=== PATIENT | female | born 1975 | race Two or more races ===

== ENCOUNTER 2024-11-19 07:16 | Emergency (ER) | payer BC, SELFPAY ==
--- NOTE | 2024-11-19 | XR_ITS ---
Examination: MRI of brain without intravenous contrast. MRI brain with intravenous contrast. Date and time of exam:November 19, 2024 1417 hrs. Indications: Stroke symptoms today, altered mental status, numbness left arm Technique: Multiple axial and sagittal images of the brain to been obtained. Siemens high-resolution 1.52 Mague short bore scanner utilized. Sagittal sections, T1 weighted images, TR 500, TE 14, are performed. Axial sections proton-density and T2-weighted images have been obtained. Inversion recovery axial images, TR 9260, TE 111, TR 2500. Diffusion weighted images, axial sections, TR 4800, TE 128, B value 1000. Axial sections, ADC map, TR 4800, TE 128. Axial and coronal images were also obtained post 10 cc gadolinium administered intravenously. Findings:: Enlargement of the sella turcica is not present. The optic chiasm and infundibular stalk are not remarkable. There is no localized enlargement of the medulla or felix. Fourth ventricle and cerebellar tonsils appear normal in position. No subacute area of hemorrhage density is seen. Fourth ventricle is midline. Mass in the cerebellopontine angle region is not evident. 7th and 8th nerve complexes exhibit symmetry Globes are symmetrical Orbital musculature including medial lateral rectus muscles do not exhibit abnormality Increased white matter signal is evident, single punctate focus increased signal in the right frontal white matter FLAIR image 13 Effacement of the cortical sulcal markings is not identified. Mass effect upon the ventricular system is not identified. Diffusion-weighted images demonstrate no focus of restricted diffusion Contrast images demonstrate no abnormal enhancement Impression: Negative for acute hemorrhage mass effect or midline shift Single punctate focus increased signal in the right frontal white matter, FLAIR image 13, likely demyelinating disease
--- NOTE | 2024-11-19 07:22 | EKG_ITS ---
[facility] Test Date: 2024-11-19 Pat Name: CYNTHIA ROMAN Department: Room: - Gender: Female Language Assistant: : 1975 Requested By: ED Temporary Provider Order Number: [id number] Reading MD: ED Temporary Provider Measurements Intervals [place] Rate: 62 P: 59 MS: 154 QRS: -3 QRSD: 96 T: 52 QT: 423 QTc: 430 Interpretive Statements SINUS RHYTHM LOW QRS VOLTAGE IN PRECORDIAL LEADS [QRS DEFLECTION < 1.0 mV IN CHEST LEADS] No previous ECG available for comparison /store/S0/[id number].pdf
[2024-11-19 07:24] VITALS: BMI 23.3
[2024-11-19 07:29] VITALS: BP 146/97; PULSE 64; RESP 19; TEMP 36.4; O2SAT 98
--- NOTE | 2024-11-19 07:59 | XR_ITS ---
Examination: CT brain head without contrast. 2-D sagittal coronal reconstructions Date and time of exam:November 19, 2024 10: 10:18 AM Indications: Onset focal neurologic deficit today CTDI: vol (mGy):44.9 DLP: (mGycm):504 Technique: Multiple CT axial sections of the brain have been obtained, 5 mm slice thickness. Contrast has not been administered. 2-D sagittal, coronal reconstructions have been obtained Low dose protocols were performed. One or more of the following dose reduction techniques were used; automated exposure control, adjustment of the mA and/or KV according to patient size, use of iterative reconstruction technique. Findings: No significant ventricular enlargement. Intra-axial or extra-axial hemorrhage density is not seen. No mass effect or midline shift Basal cisterns are not remarkable. Fourth ventricle is midline. Cranial vault intact. Impression: Negative for acute hemorrhage, mass effect or midline shift As clinically warranted, brain MRI MRA without contrast follow-up would best assess for demyelinating disease, acute ischemic change
--- NOTE | 2024-11-19 08:01 | PD.EDRME ---
Rapid Medical Screening Exam RME Arrival date/time: 11/19/24 07:16 This a 48-year-old female presents to the emergency department with complaints of chest pain and left arm numbness and tingling. She states that she began with symptoms since . Reports noticed some facial droop, and left arm strength decreased. I have greeted and performed a focused initial assessment of this patient. Initial appropriate labs ordered at this time. A comprehensive ED assessment and evaluation of the patient and analysis of all test and completion of medical decision making process will be conducted by additional ED provider. Chief Complaint: Chest Pain Time Seen by Provider: 11/19/24 07:26 Vital signs: Vital Signs Temperature 97.6 F 11/19/24 07:29 Pulse Rate 64 11/19/24 07:29 Respiratory Rate 19 11/19/24 07:29 Blood Pressure 146/97 H 11/19/24 07:29 Pulse Oximetry (%) 98 11/19/24 07:29 Oxygen Delivery Method Room Air 11/19/24 07:29
[2024-11-19 08:20] VITALS: BP 128/79; PULSE 61; RESP 16; O2SAT 99
--- NOTE | 2024-11-19 09:18 | PD.EDADULT ---
ED General RME/HPI General Chief complaint: Chest Pain Stated complaint: CHEST PAIN/NUMBNESS TO THE LEFT ARM Time Seen by Provider: 11/19/24 07:26 Arrival date/time: 11/19/24 07:16 RME / HPI RME / HPI narrative: 11/19/24 07:16 This a 48-year-old female presents to the emergency department with complaints of chest pain and left arm numbness and tingling. She states that she began with symptoms since . Reports noticed some facial droop, and left arm strength decreased. I have greeted and performed a focused initial assessment of this patient. Initial appropriate labs ordered at this time. A comprehensive ED assessment and evaluation of the patient and analysis of all test and completion of medical decision making process will be conducted by additional ED provider. DR. MARTIN GARCIA ED EVALUATION: 48 year old female presents to the Emergency Department with multiple complaints including the following: left chest pain, left neck pain, left arm numbness, facial numbness and tingling to the face sometimes on the right side sometime on the left side. She also reports she is very weak, left arm for the last couple of hours. Onset of symptoms, all, started this morning. She mentions that she has similar symptoms when she got a reaction to the COVID vaccine in [address] Charles diagnosed her with optic neuritis of the right eye which was resolved and treated. She has history of migraines and botox injections to the face. Recently had an URI last week. Related Data Allergies Allergy/AdvReac Type Severity Reaction Status Date / Time No Known Allergies Allergy Verified 11/19/24 07:23 Review of Systems Review of Systems Systems Reviewed: All systems reviewed, normal except as documented Narrative Review of Systems: GEN: No fever, no chills, no weight loss EYES: No discharge, no visual changes, no pain HEENT: No ear pain, no congestion, no sore throat; + left neck pain PULM: No shortness of breath, no cough, no congestion CV: + left chest pain, no dyspnea on exertion, no palpitations GI: No nausea, no vomiting, no diarrhea, no pain, no constipation : No frequency, no urgency and no dysuria MUSC/SKEL: No joint pain, no back pain SKIN: No rash PSYCH: No hallucinations, no depression HEME/LYMPH: No easy bleeding or bruising tendencies NEURO: + left arm numbness/ weakness, no headache, + facial numbness and tingling to the face sometimes on the right side sometime on the left side Past Medical History Social History SMOKING STATUS: Never smoker SUBSTANCE USE: does not use ALCOHOL: Never ED Exam Narrative Physical exam: GENERAL APPEARANCE: AxOx4, generally well-appearing, no acute distress. HEENT: NC, AT. MMM. EOMI, clear conjunctiva, oropharynx clear. NECK: Supple without lymphadenopathy. No stiffness or restricted ROM. HEART: Normal rate and regular rhythm, normal S1/S1, no m/r/g LUNGS: CTAB, moving air well. No crackles or wheezes are heard. ABDOMEN: Soft, nontender, nondistended with good bowel sounds heard. BACK: No midline C/T/L spine pain or deformity, No CVAT, no obvious deformity. EXTREMITIES: Without cyanosis, clubbing or edema. MUSCULOSKELETAL: FROM of all major joints, no chest tenderness NEUROLOGICAL: Grossly nonfocal. Alert and oriented, moving all 4 extremities. CN not formally tested but appear grossly intact. Observed to ambulate with normal gait. Skin: Warm and dry without any rash. Course Quality Measures none Orders Category Date Time Status Bedside Blood Glucose NOW Care 11/19/24 07:59 Active Transmission System Operator NOW Care 11/19/24 07:59 Active EKG (ED ONLY) *Do not use* NOW Care 11/19/24 07:22 Completed Insert IV NOW Care 11/19/24 07:59 Active MRI Screening NOW Care 11/19/24 09:41 Active NIH Stroke Scale now Care 11/19/24 07:59 Active NPO NOW Care 11/19/24 07:59 Active Nurse Swallow Screen x1 Care 11/19/24 07:59 Active Consult to Neurology / Tele-Neurology Routine Cons 11/19/24 07:[address] stroke protocol Stat Exams 11/19/24 07:59 Completed EKG (ED Only) Stat Exams 11/19/24 07:22 Draft MR head/brain wo/w con Stat Exams 11/19/24 Completed CBC Stat Lab 11/19/24 08:45 Completed Comprehensive Metabolic Panel Stat Lab 11/19/24 08:45 Completed Drug Screen,Urine Stat Lab 11/19/24 09:36 Completed HCG Titer if Positive Stat Lab 11/19/24 08:45 Completed Magnesium Stat Lab 11/19/24 08:45 Completed Partial Thromboplastin Time Stat Lab 11/19/24 08:45 Completed Prothrombin Time with INR Stat Lab 11/19/24 08:45 Completed Troponin I Stat Lab 11/19/24 08:45 Completed Urinalysis Stat Lab 11/19/24 09:36 Completed Urine Culture Stat Lab 11/19/24 09:36 Received Ketorolac Inj [Toradol Inj] Med 11/19/24 16:28 Discontinued 30 mg IVP X1 ONE Ondansetron Inj [Zofran Inj] Med 11/19/24 07:59 Active 4 mg IV Q4HR PRN Vital Signs Vital signs: Vital Signs Temperature 97.6 F 11/19/24 07:29 Pulse Rate 64 11/19/24 07:29 Respiratory Rate 19 11/19/24 07:29 Blood Pressure 146/97 H 11/19/24 07:29 Pulse Oximetry (%) 98 11/19/24 07:29 Oxygen Delivery Method Room Air 11/19/24 07:29 Procedures -ED EKG Interpretation #1: Date of EK11/19/24 Time of EK:28 Rate: 99 Interpretation: Interpreted by me Additional EKG comment: sinus rhythm, rate 99, normal intervals, normal axis, no acute ST-T wave changes. MDM Patient data External records reviewed:: None (no previous visits) Clinical information provided by:: patient Social determinants that could affect healthcare access:: none Patient has the following chronic illnesses:: Has history of migraines and botox injections to the face. Recently had an URI last week. See HPI. How is presenting disease/condition affected by chronic disease/condition?: no chronic disease Evaluation data The following diagnostics were reviewed and interpreted by me:: lab results, radiology exam(s) and EKG tracing(s) Lab and/or radiology exams considered but not ordered:: none Interpretation Summary: Procedure(s): CT stroke protocol Accession Number(s): [id number] cc: DAVID POLLACK; Earl Shepard MD; Bj ([facility]~ Examination: CT brain head without contrast. 2-D sagittal coronal reconstructions Date and time of exam:November 19, 2024 10: 10:18 AM Indications: Onset focal neurologic deficit today CTDI: vol (mGy):44.9 DLP: (mGycm):504 Technique: Multiple CT axial sections of the brain have been obtained, 5 mm slice thickness. Contrast has not been administered. 2-D sagittal, coronal reconstructions have been obtained Low dose protocols were performed. One or more of the following dose reduction techniques were used; automated exposure control, adjustment of the mA and/or KV according to patient size, use of iterative reconstruction technique. Findings: No significant ventricular enlargement. Intra-axial or extra-axial hemorrhage density is not seen. No mass effect or midline shift Basal cisterns are not remarkable. Fourth ventricle is midline. Cranial vault intact. Impression: Negative for acute hemorrhage, mass effect or midline shift As clinically warranted, brain MRI MRA without contrast follow-up would best assess for demyelinating disease, acute ischemic change Dictated By: Earl Shepard MD Procedure(s): MR head/brain wo/w con Accession Number(s): [id number] cc: DAVID POLLACK; Ritchie Rehman MD; Earl Shepard MD~ Examination: MRI of brain without intravenous contrast. MRI brain with intravenous contrast. Date and time of exam:November 19, 2024 1417 hrs. Indications: Stroke symptoms today, altered mental status, numbness left arm Technique: Multiple axial and sagittal images of the brain to been obtained. Siemens high-resolution 1.52 Mague short bore scanner utilized. Sagittal sections, T1 weighted images, TR 500, TE 14, are performed. Axial sections proton-density and T2-weighted images have been obtained. Inversion recovery axial images, TR 9260, TE 111, TR 2500. Diffusion weighted images, axial sections, TR 4800, TE 128, B value 1000. Axial sections, ADC map, TR 4800, TE 128. Axial and coronal images were also obtained post 10 cc gadolinium administered intravenously. Findings:: Enlargement of the sella turcica is not present. The optic chiasm and infundibular stalk are not remarkable. There is no localized enlargement of the medulla or felix. Fourth ventricle and cerebellar tonsils appear normal in position. No subacute area of hemorrhage density is seen. Fourth ventricle is midline. Mass in the cerebellopontine angle region is not evident. 7th and 8th nerve complexes exhibit symmetry Globes are symmetrical Orbital musculature including medial lateral rectus muscles do not exhibit abnormality Increased white matter signal is evident, single punctate focus increased signal in the right frontal white matter FLAIR image 13 Effacement of the cortical sulcal markings is not identified. Mass effect upon the ventricular system is not identified. Diffusion-weighted images demonstrate no focus of restricted diffusion Contrast images demonstrate no abnormal enhancement Impression: Negative for acute hemorrhage mass effect or midline shift Single punctate focus increased signal in the right frontal white matter, FLAIR image 13, likely demyelinating disease Dictated By: Earl Shepard MD Medications Medications considered but not ordered:: none Medication administrations:: Medication Administration History Ondansetron HCl (Ondansetron Inj 2 Mg/Ml Inj 2 Ml) 4 mg IV Q4HR PRN PRN Reason: NAUSEA OR VOMITING Stop: 12/19/24 07:58 Discontinued Medications Ketorolac Tromethamine (Ketorolac Inj 30 Mg/Ml Vial) 30 mg IVP X1 ONE Stop: 11/19/24 16:29 see above Consultations Consultation(s) initiated? (list below): No Diagnosis Differential Diagnosis ED Complaint MDM: RI, CAD, ACS, miraines, CVA, TIA, optic neuritis, post viral inflammation Most likely diagnosis given after review of the tests above:: Arm paresthesia, left Myalgia Admission Indicated Admission indicated?: not indicated Explain why admission is indicated or not indicated:: Patient has no emergent abnormalities on his studies and can be managed on an outpatient basis. Admission Request Was there a request for admission?: No Disposition Plan Disposition Plan: Discharge Discharge Attestation Discharge Attestation: The patient and all family members were given an opportunity to ask questions and understood the discharge instructions. Discharge instructions specifically effects, indications for sooner follow up or return to the emergency department, and the expected course of current diagnosis. Patient condition: Stable Medical Decision Making MDM Narrative MDM Narrative: I, Parris Rodarte, am scribing for and in the presence of Dr. Rehman. Differential Diagnosis Differential Diagnosis: RI, CAD, ACS, miraines, CVA, TIA, optic neuritis, post viral inflammation Lab Data 11/19/24 08:45 11/19/24 08:45 Labs: Lab Results 11/19/24 11/19/24 Range/Units 08:45 09:36 WBC 5.1 (3.6-11.0) Thou/mm3 RBC 4.43 (4.00-5.20) Miln/mm3 Hgb 13.8 (12.0-16.0) g/dL Hct 41.1 (36.0-46.0) % MCV 93 (80-100) fL MCH 31.2 (25.0-35.0) pg MCHC 33.6 (31.0-37.0) g/dl RDW Std Deviation 44.2 (36.4-46.3) fL Plt Count 192 (140-440) Thou/mm3 Neut % (Auto) 58 (37-80) % Lymph % (Auto) 32 (10-50) % [place] % (Auto) 7 (0-12) % Eos % (Auto) 2 (0-10) % Baso % (Auto) 1 (0-2.5) % Neut # (Auto) 3.0 (1.8-7.7) Thou/mm3 Lymph # (Auto) 1.7 (1.0-4.8) Thou/mm3 [place] # (Auto) 0.4 (0.0-0.8) Thou/mm3 Eos # (Auto) 0.1 (0.0-0.5) Thou/mm3 Baso # (Auto) 0.0 (0.0-0.2) Thou/mm3 Immature Gran # (Auto) 0.01 H (0.00-0.00) Thou/mm3 Absolute Nucleated RBC 0.00 (0.00-0.00) Thou/mm3 Immature Gran % 0 (0-0) % Nucleated RBC % 0 (0) /100 WBC PT 10.1 (9.0-12.2) Seconds INR 0.9 (0.9-1.3) APTT 26.3 (22.0-36.0) Seconds Sodium 140 (136-145) mMol/L Potassium 3.9 (3.4-5.1) mMol/L Chloride 105 (98-107) mMol/L Carbon Dioxide 26.9 (20.0-31.0) mMol/L Anion Gap 8 (7-16) BUN 7 L (9-23) mg/dL Creatinine 0.7 (0.6-1.3) mg/dL Estim Creat Clear Calc 96.6 (>60) mL/min eGFR > 60 (60 - ) See Note BUN/Creatinine Ratio 10 L (12-20) Ratio Glucose 86 (74-106) mg/dL Calculated Osmolality 276 (275-295) Calcium 9.3 (8.3-10.6) mg/dL Corrected Calcium 9.3 (8.5-10.1) mg/dL Magnesium 1.9 (1.6-2.6) mg/dL Total Bilirubin 0.4 (0.3-1.2) mg/dL AST 19 (0-34) U/L ALT 15 (10-49) U/L Alkaline Phosphatase 68 (46-116) U/L Troponin I < 0.002 (0.0-0.045) ng/mL Total Protein 6.6 (5.7-8.2) gm/dL Albumin 4.2 (3.5-5.0) gm/dL Globulin 2.4 (2.3-3.5) gm/dL Albumin/Globulin Ratio 1.8 (1.2-2.2) Ur Collection Type Clean Catch Urine Color Lt-Yellow (Lt Yel-Yel) Urine Clarity Clear (Clear/Hazy) Urine pH 7.0 (5.0-7.0) Ur Specific [place] 1.008 (1.001-1.035) Urine Protein Negative (Neg - Trace) Urine Glucose (UA) Negative (Negative) Urine Ketones Negative (Negative) Urine Blood Negative (Negative) Urine Nitrite Negative (Negative) Urine Bilirubin Negative (Negative) Urine Urobilinogen (Auto) Negative (0.0-1.0) mg/dL Ur Leukocyte Esterase Negative (Negative) Urine RBC < 1 (0-3) /hpf Urine WBC < 1 (0-5) /hpf Ur Squamous Epith Cells 3 (0-5) /hpf Urine Bacteria Rare (None) Urine Opiates Screen Negative (Negative) Urine Fentanyl Screen Negative (Negative) Ur Barbiturates Screen Negative (Negative) U Amphetamin/Meth Scrn Negative (Negative) U Benzodiazepines Scrn Negative (Negative) U Cocaine Metab Screen Negative (Negative) U Marijuana (THC) Screen Negative (Negative) HCG (Qual) Negative Discharge Plan Plan Patient Disposition: HOME (Self Care) Prescriptions/Referrals Referrals: DVAID POLLACK [Other] - In 1 week Problem List Clinical Impression: Arm paresthesia, left, Myalgia Patient/Caregiver Discharge Instructions Education Materials: ED Myalgias, ED Paraesthesias Additional Instructions: Follow-up with your neurologist for reevaluation advised him we have CAT scans and MRIs and regular today. You can also bring your portal access to your visit with your neurologist follow-up with your primary care doctor, Dr. Pollack, in 2 to 3 days for recheck if symptoms or not improving. Return to the emergency department sooner symptoms worsen or if notes any new, concerning issues. Print Language: Mohawk Stand Alone Forms: Mari Award Info., Patient Portal Info Letter
[2024-11-19 09:43] LABS: Collection Type, Urine Clean Catch
[2024-11-19 09:48] LABS: Basophils % (Auto) 1 % (0-2.5); Eosinophils # (Auto) 0.1 Thou/mm3 (0.0-0.5); Eosinophils % (Auto) 2 % (0-10); Hematocrit 41.1 % (36.0-46.0); Hemoglobin 13.8 g/dL (12.0-16.0); Immature Granulocytes % (Auto) 0 % (0-0); Immature Granulocytes Auto 0.01 Thou/mm3 (0.00-0.00); Lymphocytes # (Auto) 1.7 Thou/mm3 (1.0-4.8); Lymphocytes % (Auto) 32 % (10-50); Mean Corpuscular HGB Conc 33.6 g/dl (31.0-37.0); Mean Corpuscular Hemoglobin 31.2 pg (25.0-35.0); Mean Corpuscular Volume 93 fL (80-100); Monocytes # (Auto) 0.4 Thou/mm3 (0.0-0.8); Monocytes % (Auto) 7 % (0-12); Neutrophils % (Auto) 58 % (37-80); Nucleated Red Blood Cell % 0 /100 WBC (0); Platelet Count 192 Thou/mm3 (140-440); RDW Standard Deviation 44.2 fL (36.4-46.3); Red Blood Count 4.43 Miln/mm3 (4.00-5.20); White Blood Count 5.1 Thou/mm3 (3.6-11.0)
[2024-11-19 09:58] LABS: HCG Titer if Positive Negative
[2024-11-19 10:03] LABS: INR 0.9 (0.9-1.3); Partial Thromboplastin Time 26.3 Seconds (22.0-36.0); Prothrombin Time 10.1 Seconds (9.0-12.2)
[2024-11-19 10:07] LABS: Alanine Aminotransferase 15 U/L (10-49); Albumin, Serum 4.2 gm/dL (3.5-5.0); Albumin/Globulin Ratio 1.8 (1.2-2.2); Alkaline Phosphatase 68 U/L (46-116); Anion Gap 8 (7-16); Aspartate Amino Transferase 19 U/L (0-34); BUN/Creatinine Ratio 10 Ratio (12-20); Bilirubin,Total 0.4 mg/dL (0.3-1.2); Blood Urea Nitrogen 7 mg/dL (9-23); Calcium 9.3 mg/dL (8.3-10.6); Calcium (Corrected) 9.3 mg/dL (8.5-10.1); Carbon Dioxide 26.9 mMol/L (20.0-31.0); Chloride 105 mMol/L (98-107); Creatinine (Component) 0.7 mg/dL (0.6-1.3); Estimated Creatinine Clearance 96.6 mL/min (>60); Globulin 2.4 gm/dL (2.3-3.5); Glucose 86 mg/dL (74-106); Magnesium 1.9 mg/dL (1.6-2.6); Osmolality,Calculated 276 (275-295); Potassium 3.9 mMol/L (3.4-5.1); Sodium 140 mMol/L (136-145); Total Protein 6.6 gm/dL (5.7-8.2); Troponin I < 0.002 ng/mL (0.0-0.045); eGFR > 60 See Note
[2024-11-19 10:12] LABS: Amphetamine/Methamp Scrn,U Negative (Negative); Barbiturate Screen,Urine Negative (Negative); Benzodiazepines Screen,Urine Negative (Negative); Benzoylecgonine Screen, Ur Negative (Negative); Fentanyl Screen,Urine Negative (Negative); Opiate Screen,Urine Negative (Negative); THC Screen,Urine Negative (Negative)
[2024-11-19 10:26] LABS: Bacteria,Urine Rare; Bilirubin,Urine Negative (Negative); Blood,Urine Negative (Negative); Clarity,Urine Clear (Clear/Hazy); Color,Urine Lt-Yellow (Lt Yel-Yel); Glucose, Urine Negative (Negative); Ketones,Urine Negative (Negative); Leukocyte Esterase,Urine Negative (Negative); Nitrite,Urine Negative (Negative); Protein,Urine Negative (Neg - Trace); RBC,Urine < 1 /hpf (0-3); Specific Gravity,Urine 1.008 (1.001-1.035); Squamous Epithelial Cell,Urine 3 /hpf (0-5); Urobilinogen,Urine Negative mg/dL (0.0-1.0); WBC,Urine < 1 /hpf (0-5)
[2024-11-19 10:36] VITALS: BP 124/82; PULSE 63; RESP 16; TEMP 36.7; O2SAT 99
[2024-11-19 12:37] VITALS: BP 110/85; PULSE 68; RESP 18; TEMP 36.8; O2SAT 95
[2024-11-19 16:00] VITALS: BP 115/94; PULSE 65; PULSE 66; RESP 18; TEMP 36.8; O2SAT 98
[2024-11-19] MEDS: KETOROLAC INJ 30 MG/ML VIAL IVP (16:57)
== END 2024-11-19 17:06 | disposition home or self-care (01) ==
PROVIDERS: Nurse Practitioner Primary Care; Emergency Provider Emergency Medicine
DX: M79.10 Myalgia, unspecified site (principal); R20.2 Paresthesia of skin
CPT/HCPCS: 36415; 70450; 70553; 80053; 80307; 81001; 83735; 84484; 84703; 85025; 85610; 85730; 87086; 93005; 99285; A9579; J1885

== ENCOUNTER 2025-01-02 11:58 | Emergency (ER) | payer BC, SELFPAY ==
[2025-01-02 12:00] VITALS: BMI 23.5
[2025-01-02 12:08] VITALS: BP 129/88; PULSE 90; RESP 16; TEMP 36.9; O2SAT 98
--- NOTE | 2025-01-02 12:12 | XR_ITS ---
Examination: Pelvic ultrasound, transabdominal, complete Technique: Transabdominal ultrasound of the pelvis performed using grayscale imaging Date and time of exam: January 02, 2025 1327 hours INDICATIONS: Onset heavy vaginal bleeding today FINDINGS: Uterus 9.0 cm endometrial stripe 1.1 cm No uterine mass or intrauterine gestation Right ovary 3.2 cm arterial flow. Left ovary 2.7 cm arterial flow 20 x 16 mm cyst IMPRESSION: No uterine mass or intrauterine gestation Left ovarian simple cyst 20 x 16 x 16 mm
--- NOTE | 2025-01-02 12:13 | EDRME_ITS ---
Rapid Medical Screening Exam [facility] Arrival date/time: 01/02/25 11:58 49-year-old female with no known medical history presents to the emergency room with a chief complaint of bilateral pelvic pain, vaginal bleeding x 2 days. Patient states she is changing over 1 pad an hour. Patient has a history of a tubal ligation I have greeted and performed a focused initial assessment of this patient. A comprehensive ED assessment and evaluation of the patient, analysis of all test results, and completion of the medical decision making process will be conducted by additional ED providers. Chief Complaint: Vaginal Bleeding Vital signs: Vital Signs Temperature 98.5 F 01/02/25 12:08 Pulse Rate 90 01/02/25 12:08 Respiratory Rate 16 01/02/25 12:08 Blood Pressure 129/88 H 01/02/25 12:08 Pulse Oximetry (%) 98 01/02/25 12:08 Oxygen Delivery Method Room Air 01/02/25 12:08 Vital signs reviewed by provider: Yes
[2025-01-02 12:41] LABS: Basophils % (Auto) 1 % (0-2.5); Eosinophils # (Auto) 0.2 Thou/mm3 (0.0-0.5); Eosinophils % (Auto) 3 % (0-10); Hemoglobin 12.5 g/dL (12.0-16.0); Immature Granulocytes % (Auto) 0 % (0-0); Immature Granulocytes Auto 0.01 Thou/mm3 (0.00-0.00); Lymphocytes # (Auto) 1.6 Thou/mm3 (1.0-4.8); Lymphocytes % (Auto) 27 % (10-50); Mean Corpuscular HGB Conc 32.9 g/dl (31.0-37.0); Mean Corpuscular Hemoglobin 31.2 pg (25.0-35.0); Mean Corpuscular Volume 95 fL (80-100); Monocytes # (Auto) 0.4 Thou/mm3 (0.0-0.8); Monocytes % (Auto) 6 % (0-12); Neutrophils # (Auto) 3.7 Thou/mm3 (1.8-7.7); Neutrophils % (Auto) 63 % (37-80); Nucleated Red Blood Cell % 0 /100 WBC (0); Platelet Count 176 Thou/mm3 (140-440); RDW Standard Deviation 45.3 fL (36.4-46.3); Red Blood Count 4.01 Miln/mm3 (4.00-5.20); White Blood Count 5.9 Thou/mm3 (3.6-11.0)
[2025-01-02 12:59] LABS: Partial Thromboplastin Time 27.3 Seconds (22.0-36.0); Prothrombin Time 10.7 Seconds (9.0-12.2)
[2025-01-02 13:02] LABS: Alanine Aminotransferase 16 U/L (10-49); Albumin, Serum 4.1 gm/dL (3.5-5.0); Albumin/Globulin Ratio 1.7 (1.2-2.2); Alkaline Phosphatase 73 U/L (46-116); Anion Gap 8 (7-16); Aspartate Amino Transferase 18 U/L (0-34); BUN/Creatinine Ratio 20 Ratio (12-20); Bilirubin,Total 0.3 mg/dL (0.3-1.2); Blood Urea Nitrogen 16 mg/dL (9-23); Calcium 8.5 mg/dL (8.3-10.6); Calcium (Corrected) 8.5 mg/dL (8.5-10.1); Carbon Dioxide 27.2 mMol/L (20.0-31.0); Chloride 107 mMol/L (98-107); Creatinine (Component) 0.8 mg/dL (0.6-1.3); Estimated Creatinine Clearance 83.6 mL/min (>60); Globulin 2.4 gm/dL (2.3-3.5); Glucose 75 mg/dL (74-106); Osmolality,Calculated 283 (275-295); Potassium 3.8 mMol/L (3.4-5.1); Sodium 142 mMol/L (136-145); Total Protein 6.5 gm/dL (5.7-8.2); eGFR > 60 See Note
[2025-01-02 13:44] LABS: Collection Type, Urine Clean Catch
[2025-01-02 13:58] LABS: Bilirubin,Urine Negative (Negative); Blood,Urine 3+ (Negative); Clarity,Urine Clear (Clear/Hazy); Color,Urine Yellow (Lt Yel-Yel); Culture Indicated,Urine Not Indicated; Glucose, Urine Negative (Negative); Ketones,Urine Negative (Negative); Leukocyte Esterase,Urine Negative (Negative); Nitrite,Urine Negative (Negative); Protein,Urine 1+ (Neg - Trace); RBC,Urine 218 /hpf (0-3); Specific Gravity,Urine 1.035 (1.001-1.035); Squamous Epithelial Cell,Urine 2 /hpf (0-5); Urobilinogen,Urine Negative mg/dL (0.0-1.0); WBC,Urine 5 /hpf (0-5)
[2025-01-02 15:37] VITALS: BP 125/83; PULSE 72; RESP 16; TEMP 36.8; O2SAT 100
--- NOTE | 2025-01-02 15:53 | PD.EDVAGBL ---
ED OB Contraction Preg RMI/HPI General Chief complaint: Vaginal Bleeding Stated complaint: HEAVY VAGINAL BLEEDING SENT BY PCP Arrival date/time: 01/02/25 11:58 RME / HPI RME / HPI Narrative: 01/02/25 11:58 49-year-old female with no known medical history presents to the emergency room with a chief complaint of bilateral pelvic pain, vaginal bleeding x 2 days. Patient states she is changing over 1 pad an hour. Patient has a history of a tubal ligation I have greeted and performed a focused initial assessment of this patient. A comprehensive ED assessment and evaluation of the patient, analysis of all test results, and completion of the medical decision making process will be conducted by additional ED providers. DR. AMOR MAIN ED EVALUATION: 49 year old female with no past medical history presents to the Emergency Department with complaint of heavy vaginal bleeding onset yesterday morning. Patient states she has had some crampy pelvic pain and denies h/o menstrual cramping. Denies dysuria. Denies fatigue, lightheadness, SOB. Related Data Allergies Allergy/AdvReac Type Severity Reaction Status Date / Time morphine Allergy Verified 01/02/25 11:59 topiramate (From Topamax) Allergy Verified 01/02/25 11:59 Review of Systems Review of Systems Systems Reviewed: All systems reviewed, normal except as documented Past Medical History Social History SMOKING STATUS: Never smoker SUBSTANCE USE: does not use ALCOHOL: Never ED Exam Narrative Physical exam: GENERAL APPEARANCE: alert and oriented x 4, well-developed, well-nourished, no acute distress VITALS: All vitals were reviewed and the pulse ox is 100% on room air, which is normal according to my interpretation. HEENT: Normocephalic, atraumatic; pupils equal, round, reactive to light; EOMI; mucous membranes pink, moist; oropharynx clear NECK: Supple LUNGS: CTABL; no wheezes, no rales, no rhonchi HEART: Regular rate, regular rhythm; normal S1, S2; no murmurs ABDOMEN: non distended; normal BS; soft, no tenderness, no guarding, no rebound, no right lower quadrant tenderness; no masses, no organomegaly, no hernia BACK: no CVA tenderness EXTREMITIES: atraumatic; no edema NEUROLOGIC: awake; alert and oriented x4; cranial nerves II-XII grossly intact; no focal sensory or motor deficits PSYCHIATRIC: appropriate mood and affect SKIN: warm, dry, normal color; no rashes Course Quality Measures none Orders Category Date Time Status US pelvic complete Stat Exams 01/02/25 12:12 Completed Antibody Identification Stat Lab 01/02/25 12:18 Completed CBC Stat Lab 01/02/25 12:18 Completed CMP [Comprehensive Metabolic Panel] Stat Lab 01/02/25 12:18 Completed PT [Prothrombin Time with INR] Stat Lab 01/02/25 12:18 Completed PTT [Partial Thromboplastin Time] Stat Lab 01/02/25 12:18 Completed Type and Screen Stat Lab 01/02/25 12:18 Completed UA, C/S IF [Urinalysis, C/S if Indicated] Stat Lab 01/02/25 13:38 Completed Vital Signs Vital signs: Vital Signs Temperature 98.5 F 01/02/25 12:08 Pulse Rate 90 01/02/25 12:08 Respiratory Rate 16 01/02/25 12:08 Blood Pressure 129/88 H 01/02/25 12:08 Pulse Oximetry (%) 98 01/02/25 12:08 Oxygen Delivery Method Room Air 01/02/25 12:08 Vaginal Bleeding MDM Narrative MDM Narrative: Parris Cedeno am scribing for and in the presence of Dr. Amor. Patient data External records reviewed:: [facility] [place] previous records (Reviewed last ED visit dated 11/19/24, discharged with the following: Arm paresthesia, left) Clinical information provided by:: patient Social determinants that could affect healthcare access:: none Patient has the following chronic illnesses:: Denies any PMHx, surgeries, daily medications, or known allergies. How is presenting disease/condition affected by chronic disease/condition?: no chronic disease Evaluation data The following diagnostics were reviewed and interpreted by me:: lab results and radiology exam(s) Lab and/or radiology exams considered but not ordered:: none Interpretation Summary: Procedure(s): US pelvic complete Accession Number(s): [id number] cc: Iggy Peñaloza; Earl Shepard MD; NO PRIMARY/FAMILY,PHYSICIAN~ Examination: Pelvic ultrasound, transabdominal, complete Technique: Transabdominal ultrasound of the pelvis performed using grayscale imaging Date and time of exam: January 02, 2025 1327 hours INDICATIONS: Onset heavy vaginal bleeding today FINDINGS: Uterus 9.0 cm endometrial stripe 1.1 cm No uterine mass or intrauterine gestation Right ovary 3.2 cm arterial flow. Left ovary 2.7 cm arterial flow 20 x 16 mm cyst IMPRESSION: No uterine mass or intrauterine gestation Left ovarian simple cyst 20 x 16 x 16 mm Dictated By: Earl Shepard MD Medications / Prescriptions Medications or Prescriptions considered but not ordered:: none Medication administrations:: none Consultations Consultation(s) initiated? (list below): No Diagnosis Vaginal Bleeding Differential Diagnosis: dysfunctional uterine bleeding, menometrorrhagia and vaginal bleeding Most likely diagnosis given after review of the tests above:: Vaginal bleeding Pelvic pain Left ovarian cyst Dysmenorrhea Admission Indicated Admission indicated?: not indicated Admission Request Was there a request for admission?: No Disposition Plan Disposition Plan: Discharge Discharge Attestation Discharge Attestation: The patient and all family members were given an opportunity to ask questions and understood the discharge instructions. Discharge instructions specifically effects, indications for sooner follow up or return to the emergency department, and the expected course of current diagnosis. Patient condition: Stable Discharge Plan Plan Patient Disposition: HOME (Self Care) Prescriptions/Referrals Referrals: No Primary/Family,Physician [Primary Care Provider] - In 1 week Problem List Clinical Impression: Vaginal bleeding, Pelvic pain, Left ovarian cyst, Dysmenorrhea Patient/Caregiver Discharge Instructions Education Materials: ED MENSTRUAL CRAMPING Print Language: Ethiopian Stand Alone Forms: Mari Award Info., Patient Portal Info Letter
== END 2025-01-02 16:09 | disposition home or self-care (01) ==
PROVIDERS: Nurse Practitioner Family; Emergency Provider Emergency Medicine
DX: N83.202 Unspecified ovarian cyst, left side (principal); N94.6 Dysmenorrhea, unspecified; N93.9 Abnormal uterine and vaginal bleeding, unspecified
CPT/HCPCS: 36415; 76856; 80053; 81001; 85025; 85610; 85730; 86850; 86870; 86900; 86901; 99284